=== PATIENT | female | born 1965 | race Caucasian/White ===

== ENCOUNTER 2019-08-09 08:44 | Day surgery (SDC) | payer OTHER, SELFPAY ==
[2019-08-09] VITALS (7 sets, daily range): BP systolic 111–139; BP diastolic 64–86; PULSE 62–73; RESP 12–15; TEMP 36–36.9; O2SAT 96–99; BMI 32.0
--- NOTE | 2019-08-09 | PATH_ITS ---
[facility] Accession Number: [id number] . 01 Material submitted: . PART A: colon - SIGMOID COLON POLYP X2 PART B: colon - TRANSVERSE COLON POLYPS X2 . 01 Clinical history: . COLONOSCOPY W/POSS BX . 02 Diagnosis: A. Sigmoid Colon, Polyps x2, Biopsies: Tubular adenomas. . B. Transverse Colon, Polyps x2, Biopsies: Tubular adenoma in two of three fragments. MRV 08/10/2019 1418 Local . 02 Electronically signed: . Vanessa Gustafson MD, Pathologist NPI- [id number] . 01 Gross description: . Part A: SIGMOID COLON POLYP X2: Received in formalin are 2 fragment(s) of peoples, soft tissue measuring 0.6 x 0.4 x 0.3 cm to 0.4 x 0.3 x 0.3 cm submitted entirely in 1 cassette(s) Part B: TRANSVERSE COLON POLYPS X2: Received in formalin are 3 fragment(s) of peoples, soft tissue measuring 0.7 x 0.5 x 0.1 cm to 0.5 x 0.4 x 0.1 cm submitted entirely in 1 cassette(s) /QBJ 08/10/2019 0010 Local . 02 Pathologist provided ICD-10: D12.3, D12.5 . 02 CPT . 201496, [id number] Performed at: 01 [facility] [address] [id number] MD Jesse Martinez MD Phone: [phone] Performed at: 02 [facility] [address] [place], [place] [id number] MD Vanessa Gustafson MD Phone: [phone]
--- NOTE | 2019-08-09 10:45 | PM.HP.1 ---
History of Present Illness History of Present Illness Chief complaint: [id number] COLONOSCOPY W/POSS BX Patient History Family & Social History Social History: household members family Meds Home Medications and Allergies Home Medications Medication Instructions Recorded Confirmed Type Aspir-Low 81 mg DAILY 08/09/19 08/09/19 History metformin 500 mg DAILY 08/09/19 08/09/19 History simvastatin 40 mg DAILY 08/09/19 08/09/19 History Allergies Allergy/AdvReac Type Severity Reaction Status Date / Time No Known Drug Allergies Allergy Verified 08/09/19 09:20 Review of Systems Review of Systems ROS Unobtainable: All systems reviewed & are unremarkable except as noted in HPI and below Exam Vital Signs (past 8 hours): - 08/09/19 09:02 Temperature 96.8 F L Pulse Rate 70 Respiratory Rate 15 Blood Pressure 139/86 Pulse Oximetry 97 Oxygen Delivery Method Room Air Narrative Exam Narrative: Awake alert and oriented x3, no acute distress, lungs clear, heart regular rate and rhythm, abdomen nontender nondistended, no lower extremity edema Assessment & Plan Assessment & Plan narrative: Positive fecal occult blood test for colonoscopy
[2019-08-09] MEDS: MIDAZOLAM 5 MG/5 ML VIAL IV (11:12)
[2019-08-09] MEDS: fentaNYL 250 MCG/5 ML INJ IV (11:13)
--- NOTE | 2019-08-09 11:19 | PM.OP.ENDO ---
Operative Date/Time/Diagnoses Date of procedure: 08/09/19 Procedure & Clinicians Study performed: Colonoscopy with snare polypectomy Moderate conscious sedation was administered by the endoscopy nurse and supervised by the endoscopist. The following parameters were monitored: Oxygen saturation, heart rate, blood pressure, and response to care. Same procedure as scheduled: Yes Indications: Positive fecal occult blood testing. No prior colonoscopy. Procedure Notes Procedure in detail: Prior to the procedure, history and physical was performed, and patient medications and allergies were reviewed. Preprocedure nursing history and assessment was reviewed. Patient identification and proposed procedure were verified by the physician and nurse in the procedure room. The physical status of the patient was reassessed after the procedure. After informed consent was obtained including risks, benefits, and alternatives, the scope was passed under direct vision. Throughout the procedure, the patient's blood pressure, pulse, and oxygen saturations were monitored continuously. The colonoscope was introduced through the anus and advanced to the cecum as identified by the appendiceal orifice and ileocecal valve. The patient tolerated the procedure well. Bowel prep was deemed adequate to detect polyps greater than 5 mm. Perianal and digital rectal examinations are unremarkable. Grade 1 internal hemorrhoids noted on retroflexion in the rectum. Three sessile 2 semi sessile polyps ranging in size from 5 - 6 mm noted in the sigmoid colon (2) and transverse colon. These were resected with a cold snare and retrieved. Scattered medium mouthed diverticula noted in the sigmoid colon Impression: Internal hemorrhoids Three 5 -6 mm polyps removed from the sigmoid and transverse colon Sigmoid colon Diverticulosis Sedation minutes: 24 Complications: other (EBL minimal. No complications) Post-procedure Plan for aftercare: Follow-up pathology results Repeat colonoscopy at a date to be determined based on pathology results Resume home medications High fiber diet Discharge home with escort when discharge criteria met
== END 2019-08-09 12:23 | disposition home or self-care (01) ==
PROVIDERS: Visit Provider Internal Medicine
PROC: 0DJD8ZZ Inspection of Lower Intestinal Tract, Via Natural or Artificial Opening Endoscopic (ICD-10-PCS; CPT 45378; principal; 2019-08-09 10:00)
DX: E11.9 Type 2 diabetes mellitus without complications (principal); Z79.84 Long term (current) use of oral hypoglycemic drugs; K57.30 Diverticulosis of large intestine without perforation or abscess without bleeding; K64.0 First degree hemorrhoids; D12.5 Benign neoplasm of sigmoid colon; D12.3 Benign neoplasm of transverse colon
CPT/HCPCS: 45385; J2250; J3010